=== PATIENT | male | born 1935 | race Caucasian/White ===

== ENCOUNTER 2016-07-13 07:17 | Inpatient (IN) | payer OTHER ==
[2016-06-24 14:01] VITALS: BMI 24.0
--- NOTE | 2016-06-24 14:38 | PAT Medication Instructions ---
Service Date Jun 24, 2016. Current Home Medication List Ibuprofen (Advil), 200-400 MG PO PRN Omeprazole (Prilosec), 20 MG PO QAM Medication Instructions For Your Scheduled Surgery - Check with surgeon for instructions: Ibuprofen (Advil), 200-400 MG PO PRN - Take the following medications the morning of surgery with a sip of water: Omeprazole (Prilosec), 20 MG PO QAM If you have any questions please call us at [phone] (Radha Quan PA-C) or [phone] or [phone]
--- NOTE | 2016-06-24 15:25 | DIAGNOSTIC IMAGING REPORT ---
CHEST 2 VIEWS ROUTINE CLINICAL HISTORY: PAT preoperative evaluation COMPARISON STUDY: No previous studies for comparison. FINDINGS: The bones soft tissues and hemidiaphragms are normal. The cardiomediastinal silhouette is normal. The lungs are clear. The pulmonary vasculature is normal. IMPRESSION: Negative chest. Electronically signed by: Justin Mack M.D. 06/24/2016 3:24 PM Dictated Date/Time: 06/24/2016 3:22 PM
[2016-06-24 15:42] LABS: BASO % 0.4 %; BASO ABS # 0.03 K/uL (0-0.2); COMPLETE YES; EOS % 2.1 %; HEMATOCRIT 46.4 % (42-52); IG% 0.1 %; LYMPH % 18.7 %; LYMPH ABS # 1.44 K/uL (1.2-3.4); MEAN CELL VOLUME 91.7 fL (80-100); MEAN CORPUSCULAR HEMOGLOBIN 31.2 pg (25-34); MEAN CORPUSCULAR HGB CONC 34.1 g/dl (32-36); MEAN PLATELET VOLUME 10.4 fL (7.4-10.4); MONO % 7.8 %; NEUT % 70.9 %; PLATELET COUNT 199 K/uL (130-400); RED BLOOD COUNT 5.06 M/uL (4.7-6.1); WHITE BLOOD COUNT 7.71 K/uL (4.8-10.8)
[2016-06-24 15:45] LABS: URINE APPEARANCE CLOUDY (CLEAR); URINE BILIRUBIN NEG (NEG); URINE COLOR YELLOW; URINE EPITHELIAL CELL AUTO 0-5 /lpf (0-5); URINE NITRITE NEG (NEG); URINE SPECIFIC GRAVITY 1.016 (1.000-1.030); UROBILINOGEN NEG (NEG); ZZUR CULT IF INDIC CLEAN CATCH NO
[2016-06-24 15:48] LABS: MANUAL MICROSCOPIC REQUIRED? NO; REVIEW REQ? NO
[2016-06-24 15:51] LABS: PARTIAL THROMBOPLASTIN RATIO 1.1; PROTHROMBIN TIME (PATIENT) 10.3 SECONDS (9.0-12.0)
[2016-06-24 16:12] LABS: BUN/CREATININE RATIO 18.1 (10-20); CALCIUM 9.4 mg/dl (8.5-10.1); CREATININE 0.82 mg/dl (0.60-1.40); POTASSIUM 4.7 mmol/L (3.5-5.1)
--- NOTE | 2016-07-12 14:48 | HISTORY & PHYSICAL EXAMINATION ---
DATE OF ADMISSION: 07/13/2016 CHIEF COMPLAINT: Right hip pain. HISTORY OF PRESENT ILLNESS: Leonidas is an 81-year-old male with a multiple year history of pain in his right hip. The patient rates his pain a 7/10. He has pain with his daily activities. He has limited standing and walking tolerance. Pain is worse with weightbearing. The patient has had injections in the past without relief. He has failed conservative treatment and is scheduled for right hip replacement. PAST MEDICAL HISTORY: Benign. He denies heart disease, diabetes or DVT. PAST SURGICAL HISTORY: Cataract extraction, tonsillectomy, hernia repair and appendectomy. SOCIAL HISTORY: The patient denies alcohol or tobacco use. He lives in a single padma home. He is and retired. FAMILY HISTORY: Negative for DVT. MEDICATIONS: Omeprazole and ibuprofen p.r.n. ALLERGIES: CODEINE AND IODINE. REVIEW OF SYSTEMS: See HPI. Ten other systems reviewed, all negative. PHYSICAL EXAMINATION: VITAL SIGNS: Height 5 foot 7, weight 161 pounds, BMI 25. GENERAL: This is a well-developed, well-nourished male who is alert and oriented x3. Mood and affect are appropriate. HEENT: Normocephalic, atraumatic. Mucous membranes are moist and intact. NECK: Supple without lymphadenopathy. HEART: Regular rate and rhythm without murmurs, rubs or gallops. LUNGS: Clear to auscultation without wheezes or rhonchi. ABDOMEN: Soft and nontender. Bowel sounds are equal and active. EXTREMITIES: No ecchymosis, redness or warmth. Thigh and calf are soft and nontender. Log roll of the hip reproduces pain in the groin. He is neurovascularly intact with +5/5 strength. X-RAY EXAMINATION: AP and lateral views show joint space narrowing and osteophyte formation. IMPRESSION: Degenerative joint disease, right hip. PLAN: The patient will be admitted for a right total hip arthroplasty. We will plan on aspirin for DVT prophylaxis. The patient will likely have home physical therapy, postoperatively.
[~2016-07-13] VITALS: Ht 172.7 cm; Wt 73.2 kg
[2016-07-13] VITALS (7 sets, daily range): BP systolic 112–132; BP diastolic 61–77; PULSE 65–100; TEMP 36.3–36.5; O2SAT 95–99; Ht 172.7 cm; Wt 73.2 kg
[2016-07-13] MEDS: TRANEXAMIC ACID INJ 1,000 MG in SODIUM CHLORIDE 0.9% 100ML 100 ML IV SCH ×2 (06:30→09:12)
[~2016-07-13 07:17] MED LIST: ACETAMINOPHEN 500 MG TAB PO SCH; BUPIVACAINE 0.5 % 5 MG/1 ML PF 10ML VIAL ONE; CEFAZOLIN 2000 MG/60 ML D5W 60 ML IV SCH; CeleBREX 200 MG CAP PO SCH; DEXAMETHASONE 4 MG TAB PO SCH; FAMOTIDINE 20 MG TAB PO SCH; GABAPENTIN 300 MG CAP PO SCH; IBUP-1050 PO; LACTATED RINGER'S 1000ML 1,000 ML IV SCH; LACTATED RINGER'S 1000ML 500 ML IV ONE; LACTATED RINGER'S 1000ML IV SCH; METOCLOPRAMIDE HCL 10 MG TAB PO SCH; OXYCODONE HCL 10 MG TABCR (OXYCONTIN) PO SCH; POLYMYXIN B SULFATE 100,000 UNITS in NSS 100ML IR SCH; PRLSR20 PO; ROPIVACAINE 5MG/ML 30 ML 150 MG, BUPIVACAINE/EPINEPHR 0.5% MPF 30 ML, KETOROLAC TROMETH... INFIL SCH; VANCOMYCIN INJ 400 MG in NSS 100ML IR SCH
[2016-07-13] MEDS ORDERED: FENTANYL CITRATE INJ 50 MCG/1 ML 2 ML VIAL ONE (08:37)
[2016-07-13] MEDS ORDERED: MIDAZOLAM HCL 1 MG/ML 2ML VIAL ONE ×2 (08:37→10:04)
[2016-07-13] MEDS ORDERED: PROPOFOL IV EMULSION 10 MG/ML 20 ML VIAL IV ONE (08:37)
--- NOTE | 2016-07-13 08:38 | History & Physical Bridge Note ---
H&P Re-Evaluation Bridge Note: I have examined the patient, reviewed the History & Physical and in the interval since the performance of the History & Physical I have noted the following changes of clinical significance: No changes noted
[2016-07-13] MEDS ORDERED: LACTATED RINGER'S 1000ML 1,000 ML IV PRN (09:08)
[2016-07-13] MEDS ORDERED: BACITRACIN 50000 UNIT VIAL ONE (09:14)
[2016-07-13] MEDS ORDERED: ORTHO JOINT ANESTHETIC ONE (09:14)
[2016-07-13] MEDS ORDERED: POVIDONE-IODINE OP SOLN 30 ML BTL ONE (09:14)
[2016-07-13] MEDS ORDERED: FENTANYL CITRATE INJ 50 MCG/1 ML 2 ML VIAL IV PRN (09:15)
[2016-07-13] MEDS ORDERED: ONDANSETRON INJ 2 MG/ML 2 ML VIAL IV PRN ×2 (09:15→11:15)
--- NOTE | 2016-07-13 11:03 | [facility] Post Operative Brief Note ---
Immediate Operative Summary Operative Date Jul 13, 2016. Pre-Operative Diagnosis Right hip degenerative joint disease Post-Operative Diagnosis Right hip degenerative joint disease Procedure(s) Performed Right total hip arthoplasty, anterior approach Surgeon Dr. Yovanny Ornelas Auricular Acupuncturist Surgeon(s) Radha Arrieta PA-C Estimated Blood Loss 50 cc Findings djd Specimens A: Right femoral head Complication(s) None Disposition Recovery Room / PACU
[2016-07-13] MEDS ORDERED: MAGNESIUM HYDROXIDE SUSP 30 ML UDC PO PRN (11:15)
[2016-07-13] MEDS ORDERED: DiphenhydrAMINE HCL 50 MG/ML VIAL IV PRN (11:15)
[2016-07-13] MEDS ORDERED: ALUMINUM/MAGNESIUM/SIMETH (MAALOX MAX) 30 ML UDC PO PRN (11:15)
[2016-07-13] MEDS ORDERED: METOCLOPRAMIDE HCL INJ 5 MG/ML 2 ML VIAL IV PRN (11:15)
[2016-07-13] MEDS ORDERED: SOD PHOSPHATE/SOD BIPHOSPHATE ENEMA 132 ML BTL PR PRN (11:15)
[2016-07-13] MEDS ORDERED: BISACODYL 10 MG SUPP PR PRN (11:15)
[2016-07-13] MEDS ORDERED: ZOLPIDEM TARTRATE 5 MG TAB PO PRN (11:15)
[2016-07-13] MEDS ORDERED: OXYCODONE HCL IR 5 MG TAB (IMMEDIATE RELEASE) PO PRN (11:15)
[2016-07-13] MEDS ORDERED: MoRPHine SULFATE 2 MG/ML CARP IV PRN (11:15)
[2016-07-13] MEDS ORDERED: TRAMADOL HCL 50 MG TAB PO PRN (11:15)
--- NOTE | 2016-07-13 11:23 | DIAGNOSTIC IMAGING REPORT ---
INTRAOPERATIVE FLUOROSCOPIC IMAGES OF THE RIGHT HIP CLINICAL HISTORY: Right hip arthroplasty. COMPARISON STUDY: No previous studies for comparison. Fluoroscopy time: 11.5 seconds. FINDINGS: A single AP fluoroscopic image demonstrates anatomic alignment of the right hip arthroplasty. An acetabular screw is in place. The distal aspect of the femoral component was not imaged on this exam. No fracture is identified on this study. There are no unexpected radiopaque foreign bodies. IMPRESSION: Expected intraoperative findings during right hip arthroplasty. Electronically signed by: Colton Travis M.D. 07/13/2016 11:22 AM Dictated Date/Time: 07/13/2016 11:21 AM
--- NOTE | 2016-07-13 11:53 | DIAGNOSTIC IMAGING REPORT ---
RIGHT PELVIS/UNILATERAL HIP 1 VIEW CLINICAL HISTORY: IN PACU - A/P PELVIS and LATERAL HIP INCLUDING ALL OF IMPLANT Right postoperative evaluation COMPARISON: None. DISCUSSION: Total right hip replacement. Good contact between prosthetic and underlying bone. No evidence for acetabular protrusion. There is no evidence for soft tissue swelling. IMPRESSION: Anatomic alignment status post total right hip replacement Electronically signed by: Justin Mack M.D. 07/13/2016 11:51 AM Dictated Date/Time: 07/13/2016 11:50 AM
--- NOTE | 2016-07-13 13:03 | Anesthesiology Progress Note ---
Anesthesia Post Op Note Date & Time Jul 13, 2016 at 13:03 Vital Signs Pain Intensity: 0 Vital Signs Past 12 Hours Date Time Temp Pulse Resp B/P Pulse Ox O2 Delivery O2 Flow Rate FiO2 07/13/16 12:40 36.7 80 16 118/62 97 Nasal Cannula 2 07/13/16 12:30 78 16 126/65 95 Nasal Cannula 2 07/13/16 12:20 87 16 127/69 97 Nasal Cannula 2 07/13/16 12:10 86 16 123/62 97 Nasal Cannula 2 07/13/16 12:00 86 16 115/64 97 Nasal Cannula 2 07/13/16 11:50 78 16 122/66 100 Nasal Cannula 2 07/13/16 11:40 91 16 127/66 100 Mask 10 07/13/16 11:30 96 16 108/67 100 Mask 10 07/13/16 11:24 36.5 90 16 124/68 100 Mask 10 07/13/16 07:52 36.3 65 20 122/77 98 Room Air Notes Mental Status: alert / awake / arousable, participated in evaluation Pt Amnestic to Procedure: Yes Nausea / Vomiting: adequately controlled Pain: adequately controlled Airway Patency, RR, SpO2: stable & adequate BP & HR: stable & adequate Hydration State: stable & adequate Neuraxial Anesthesia: was administered, sensory block is resolving Anesthetic Complications: no major complications apparent
[2016-07-13] MEDS: D5W AND 1/2NSS + 20MEQ KCL 1,000 ML IV SCH (14:15)
--- NOTE | 2016-07-13 14:25 | Discharge Instructions ---
Discharge Instructions Admission Reason for Admission: Right Hip Arthritis Discharge Discharge Diagnosis / Problem: sp right PRASANNA Discharge Goals Goal(s): Decrease discomfort, Improve function, Increase independence Activity Recommendations Activity Limitations: per Instructions/Follow-up section . Instructions / Follow-Up Instructions / Follow-Up ACTIVITY RECOMMENDATIONS: SELF CARE INSTRUCTIONS AFTER TOTAL HIP REPLACEMENT : Direct Anterior Approach Until the incision and soft tissues around your hip have healed, there is a possibility that the hip prosthesis could dislocate. A. Hip flexion ( Up & Down out of chair or steps ) may be difficult. This is normal. B. Numbness in front of the thigh is also normal for a few weeks. C. Use hand rails when walking on stairs. D. Wear low heeled shoes with non-slip soles. E. Be sure that your floors are free of things that could trip you - throw rugs , electrical cords, small objects. Avoid wet and waxed floors, especially with crutches and canes. F. Try to walk several times a day with rest periods between. G. Continue with all the exercises taught to you in the hospital. Again, make walking a part of your daily routine. SPECIAL CARE INSTRUCTIONS: VERY IMPORTANT TO READ AND REVIEW A. You may still be at risk for phlebitis and blood clots. 1. Wear surgical stockings (MARA hose) for 2 weeks after surgery to improve circulation and reduce swelling. 2. Take Aspirin 81mg twice daily for 4 weeks or as directed by your doctor. This is your blood thinner. 3. High risk patients may be prescribed a stronger blood thinner if necessary. 4. If you are on Coumadin normally, your family doctor/summer clerk should monitor your blood work. Expect a phone call the day of or the day after bloodwork is drawn to adjust your dosage. B. You must take antibiotics before having dental work, bladder, bowel and other surgery. Your doctor will provide you with a permanent card to carry describing precautions. C. Call [facility] if you have a fever, redness or swelling around the incision, cloudy drainage from incision, or sudden increase in pain in your hip, not relieved by your regular pain medication. D. Please call the office at if you have any concerns or questions about your operation or recovery. * YOU MAY SHOWER, NO TUB BATHS UNTIL CLEARED BY YOUR DOCTOR. - Keep an extra close eye on the top portion of your incision. Be sure to keep clean & dry. * WEAR MARA HOSE 20 HOURS PER DAY FOR 2 WEEKS. * YOU MAY PROGRESS FROM A WALKER, TO A CANE, TO INDEPENDENT AT YOUR OWN PACE. * MOST PATIENTS WILL HAVE HOME NURSING FOR THERAPY. IF YOU DECIDE TO DO OUTPATIENT PHYSICAL THERAPY, PLEASE SCHEDULE THIS 3 TIMES PER WEEK. * DERMABOND Prineo- This is a mesh tape dressing that is covered with glue. It should remain in place until the incision is properly healed, usually 10-14 days. This dressing is designed to naturally slough off. You may trim the excess mesh tape as it peels off. Incision may be briefly wet in a shower. Dry immediately by blotting with a clean, dry towel. Do not bath or swim until instructed by your doctor. Do not scratch, rub, or pick at the dressing. Do not apply any topical ointments or lotions until dressing is completely removed and/or instructed by your doctor. There may be a small piece of suture material at one end of your incision. Do not pull or trim this. If it is bothersome or catching on clothing, you may cover it with a band-aid. FOLLOW UP VISIT: If appointment is not already scheduled: Please call [facility] to make a follow-up appointment for 2 weeks after your surgery at . Current Hospital Diet Patient's current hospital diet: Regular Diet Discharge Diet Recommended Diet: Regular Diet Procedures Procedures Performed: Right total hip arthoplasty, anterior approach Pending Studies Studies pending at discharge: no Medical Emergencies . Who to Call and When: Medical Emergencies: If at any time you feel your situation is an emergency, please call 911 immediately. . Non-Emergent Contact Non-Emergency issues call your: Primary Care Provider . "Provider Documentation" section prepared by Chel Arrieta. VTE Core Measure Inpt VTE Proph given/why not?: Other Anticoagulation, T.E.D. Stockings, SCD's [place] Drug Monitoring Program Search Results: see additional documentation (not identified in database.)
[2016-07-13] MEDS: KETOROLAC TROMETHAMINE 15 MG/ML VIAL IV. SCH ×2 (16:27→22:26)
--- NOTE | 2016-07-13 16:35 | OPERATIVE REPORT ---
DATE OF OPERATION: 07/13/2016 PREOPERATIVE DIAGNOSIS: Degenerative arthritis, right hip. POSTOPERATIVE DIAGNOSIS: Same. PROCEDURE: Right total hip replacement. SURGEON: Federico Ornelas MD TELETYPE INSTALLER: ROMARIO Garg ANESTHESIA: Spinal. BLOOD LOSS: 50 mL. REPLACEMENT FLUIDS: 1600 mL crystalloid. DRAINS: Hemovacs x1. CULTURES: None. COMPLICATIONS: None. COMPONENTS USED: [employer] hip system: Acetabulum size 52, femur size 8 high offset, femoral head -3, 36 mm. NOTE: ROMARIO Garg was present and assisted throughout due to the complicated nature of this case. She helped with preparation and set up, first assisted throughout and personally closed the fascial, subcutaneous and skin layers and applied the postoperative dressing. DESCRIPTION OF PROCEDURE: Following satisfactory spinal, the patient was supine. The right leg was placed in the traction device and the left leg in the well leg diehl. The right leg was prepared with ChloraPrep and draped sterilely. Following a surgical time-out, an anterior approach in the interval between the sartorius and tensor muscles was completed. The circumflex femoral vessels were identified and ligated. An anterior capsulotomy was performed exposing an arthritic femoral neck and head. The femoral neck and head were trimmed and removed. The acetabular self-retraining retractor was placed. Acetabular reaming was completed with fluoroscopic guidance and a 52 shell was impacted into an anatomic position and secured with a dome screw. After local anesthetic and irrigation, the polyethylene liner was placed. The femur was placed in a position of external rotation, extension and adduction. Femoral canal was prepared up to the size 8. A trial reduction with a -3 head using fluoroscopy showed good fit and fill of the proximal canal and anabaptism of leg lengths using anatomic landmarks. The hip was dislocated. The trial component was removed. Local anesthetic was placed and after irrigation, the final implant was placed and the hip was reduced. Fluoroscopy confirmed similar position. A Betadine soak was performed for 5 minutes and then irrigated. The capsule was closed with #1 Vicryl interrupted. A drain was then placed. The fascia was closed with a running suture of 1 Vicryl, the subcutaneous tissues with 2-0 Vicryl and the skin with a running subcuticular stitch of 3-0 V-Loc. Dermabond and a dry dressing were applied. The patient was returned to his bed in stable condition. I attest to the content of the Intraoperative Record and any orders documented therein. Any exceptio ns are noted below.
[2016-07-13] MEDS ORDERED: TRANEXAMIC ACID INJ 1,000 MG in SODIUM CHLORIDE 0.9% 100ML 100 ML IV SCH (17:00)
[2016-07-13] MEDS: CEFAZOLIN IV 2,000 MG in DEXTROSE 5% 50ML 50 ML IV SCH (18:35)
[2016-07-13] MEDS: ACETAMINOPHEN 500 MG TAB PO SCH (18:36)
[2016-07-13] MEDS ORDERED: SENNA 8.6 MG TAB PO SCH (21:00)
[2016-07-13] MEDS: ASPIRIN 81 MG ECTAB PO SCH (21:18)
[2016-07-14] MEDS: D5W AND 1/2NSS + 20MEQ KCL 1,000 ML IV SCH ×2 (00:11→10:00)
[2016-07-14] MEDS: CEFAZOLIN IV 2,000 MG in DEXTROSE 5% 50ML 50 ML IV SCH (02:58)
[2016-07-14] MEDS: ACETAMINOPHEN 500 MG TAB PO SCH ×2 (02:58→10:15)
[2016-07-14 03:08] VITALS: BP 118/71; PULSE 79; TEMP 36.4; O2SAT 97
[2016-07-14] MEDS: KETOROLAC TROMETHAMINE 15 MG/ML VIAL IV. SCH ×2 (05:06→10:14)
[2016-07-14 05:37] LABS: BASO % 0.1 %; BASO ABS # 0.01 K/uL (0-0.2); COMPLETE YES; HEMATOCRIT 40.2 % (42-52); IG% 0.2 %; LYMPH % 5.8 %; LYMPH ABS # 1.01 K/uL (1.2-3.4); MEAN CELL VOLUME 89.5 fL (80-100); MEAN CORPUSCULAR HEMOGLOBIN 31.2 pg (25-34); MEAN CORPUSCULAR HGB CONC 34.8 g/dl (32-36); MEAN PLATELET VOLUME 10.3 fL (7.4-10.4); MONO % 6.1 %; NEUT % 87.8 %; PLATELET COUNT 164 K/uL (130-400); RED BLOOD COUNT 4.49 M/uL (4.7-6.1); WHITE BLOOD COUNT 17.34 K/uL (4.8-10.8)
[2016-07-14 06:19] LABS: BUN/CREATININE RATIO 12.7 (10-20); CALCIUM 9.1 mg/dl (8.5-10.1); CREATININE 0.85 mg/dl (0.60-1.40); POTASSIUM 4.4 mmol/L (3.5-5.1)
[2016-07-14 07:19] VITALS: BP 125/70; PULSE 77; TEMP 36.6; O2SAT 100
--- NOTE | 2016-07-14 07:53 | Orthopedic Progress Note ---
Orthopedic Progress Note Date of Service Jul 14, 2016. Subjective Post OP Day: 1 Reports: feeling well, pain controlled w PO medications, Denies: SOB, chest pain , complaints, light headedness, nausea / vomiting Objective calves soft nontender, N/V intact, hip located, dressing C/D/I, A&O x3, toes mobile, hemovac drainage (105 CC) Date Time Temp Pulse Resp B/P Pulse Ox O2 Delivery O2 Flow Rate FiO2 07/14/16 07:19 36.6 77 16 125/70 100 Room Air 07/14/16 03:08 36.4 79 16 118/71 97 Room Air 07/14/16 00:10 Room Air 07/13/16 23:29 36.4 84 16 112/66 95 Room Air 07/13/16 20:06 36.3 84 18 132/75 98 Room Air 07/13/16 16:01 36.4 90 16 115/61 99 Nasal Cannula 2.0 07/13/16 15:40 Nasal Cannula 2.0 07/13/16 14:40 98 16 124/75 96 Nasal Cannula 2.0 07/13/16 13:55 100 16 125/74 97 Nasal Cannula 2.0 07/13/16 12:55 96 Nasal Cannula 2.0 07/13/16 12:55 36.5 85 16 125/70 96 Nasal Cannula 2.0 07/13/16 12:55 Nasal Cannula 2.0 07/13/16 12:40 36.7 80 16 118/62 97 Nasal Cannula 2 07/13/16 12:30 78 16 126/65 95 Nasal Cannula 2 07/13/16 12:20 87 16 127/69 97 Nasal Cannula 2 07/13/16 12:10 86 16 123/62 97 Nasal Cannula 2 07/13/16 12:00 86 16 115/64 97 Nasal Cannula 2 07/13/16 11:50 78 16 122/66 100 Nasal Cannula 2 07/13/16 11:40 91 16 127/66 100 Mask 10 07/13/16 11:30 96 16 108/67 100 Mask 10 07/13/16 11:24 36.5 90 16 124/68 100 Mask 10 07/13/16 07:52 36.3 65 20 122/77 98 Room Air Laboratory Results 24 Hours: Test 07/14/16 05:26 White Blood Count 17.34 K/uL Red Blood Count 4.49 M/uL Hemoglobin 14.0 g/dL Hematocrit 40.2 % Mean Corpuscular Volume 89.5 fL Mean Corpuscular Hemoglobin 31.2 pg Mean Corpuscular Hemoglobin Concent 34.8 g/dl Platelet Count 164 K/uL Mean Platelet Volume 10.3 fL Neutrophils (%) (Auto) 87.8 % Lymphocytes (%) (Auto) 5.8 % Monocytes (%) (Auto) 6.1 % Eosinophils (%) (Auto) 0.0 % Basophils (%) (Auto) 0.1 % Neutrophils # (Auto) 15.23 K/uL Lymphocytes # (Auto) 1.01 K/uL Monocytes # (Auto) 1.05 K/uL Eosinophils # (Auto) 0.00 K/uL Basophils # (Auto) 0.01 K/uL Assessment & Plan Assessment: POD 1 PRASANNA Plan: HOME TODAY WILL NEED HOME HEALTH LIVES IN [facility] Inhouse Planning Pain Management: Celebrex, Ultram, PO Tylenol, Oxy IR DVT Prophylaxis: TEDs, ASA Discharge Planning Discharge Planning: home with home health Pain Management: Oxycontin, Ultram, PO Tylenol, Oxy IR DVT Prophylaxis: TEDs, ASA
[2016-07-14] MEDS ORDERED: CeleBREX 200 MG CAP PO SCH (08:00)
[2016-07-14] MEDS ORDERED: CLB200 PO (08:22)
[2016-07-14] MEDS ORDERED: ONDA8TAB6 PO (08:22)
[2016-07-14] MEDS ORDERED: ASPEC81 PO (08:22)
[2016-07-14] MEDS ORDERED: ACET-1138 PO (08:22)
[2016-07-14] MEDS ORDERED: RXC5 PO (08:22)
[2016-07-14] MEDS ORDERED: SNK PO (08:22)
[2016-07-14] MEDS: ASPIRIN 81 MG ECTAB PO SCH (08:40)
[2016-07-14] MEDS ORDERED: PANTOprazole SOD 40 MG TAB PO SCH (09:00)
[2016-07-14] MEDS ORDERED: MULTIVITAMIN TAB PO SCH (09:00)
[2016-07-14 10:57] VITALS: BP 111/70; PULSE 73; TEMP 36.5; O2SAT 98
[2016-07-14 11:53] VITALS: BP 111/70; PULSE 73; TEMP 36.5; O2SAT 98
--- NOTE | 2016-07-23 14:18 | DISCHARGE SUMMARY ---
DISCHARGE DIAGNOSIS: Degenerative joint disease, right hip. SECONDARY DIAGNOSIS: None. CONSULTS: None. COMPLICATIONS: None. PROCEDURE: The patient underwent a direct anterior right total hip arthroplasty with Dr. Ornelas on 07/13/2016. BRIEF HISTORY: Please see previously dictated history and physical. HOSPITAL SUMMARY: The patient was admitted on the above day for the above procedure. Procedure went without complication. Postop day 1, the patient was feeling well without complaints. He denied chest pain or shortness of breath. Vital signs were stable. He was afebrile. Dressing was clean, dry and intact. He was neurovascularly intact. Calves were soft and nontender. Hemovac drained 105 mL. Hemoglobin was 14.0. Patient began physical therapy per protocol. He was discharged home later that day in stable condition. For further review please see the chart. Lab, x-ray data and discharge instructions as per chart.
--- NOTE | 2016-07-26 14:33 | DISCHARGE SUMMARY ---
DISCHARGE DIAGNOSIS: Degenerative joint disease, right hip. SECONDARY DIAGNOSIS: None. CONSULTS: None. COMPLICATIONS: None. PROCEDURE: The patient underwent a right total hip arthroplasty, direct anterior approach with Dr. Federico Ornelas on 07/14/2016. BRIEF HISTORY: Please see previously dictated history and physical. HOSPITAL SUMMARY: The patient was admitted on the above day for the above procedure. Procedure went without complication. Postop day 1, the patient was feeling well without complaints. He denied chest pain or shortness of breath. Vital signs were stable. He was afebrile. Dressing was clean, dry and intact. He was neurovascularly intact. Hemovac drained 105, hemoglobin was 14. The patient began physical therapy per protocol. He was discharged to home later that day in stable condition. For further review, please see the chart. Lab, x-ray data and discharge instructions as per chart.
== END 2016-07-14 13:33 | disposition home health service (06) | DRG 470 ==
LOC: ENRESERVTM → ENRESERVDT → C.ACU 07:17 → C.3E 08:00
PROVIDERS: ADMIT Orthopaedic Surgery; ATTEND Orthopaedic Surgery
PROC: 0SR90JZ Replacement of Right Hip Joint with Synthetic Substitute, Open Approach (ICD-10-PCS; principal; 2016-07-13 09:30)
DX: M16.11 Unilateral primary osteoarthritis, right hip (principal); Z79.899 Other long term (current) drug therapy; Z98.890 Other specified postprocedural states